=== PATIENT | female | born 1985 | race Hispanic/Latino ===

== ENCOUNTER 2019-12-26 14:32 | Emergency (ER) | payer OTHER, SELFPAY ==
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
[2019-12-26] MEDS ORDERED: HYDROCODONE/APAP 7.5/325 MG TAB ONE (15:49)
[2019-12-26] MEDS ORDERED: LIDOCAINE 1% MPF 5 ML VIAL ONE (15:49)
[2019-12-26] MEDS ORDERED: TETANUS & DIPHTHERIA TOX,ADULT 0.5 ML VIAL ONE (15:50)
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
[2019-12-26 16:31] VITALS: BP 150/92; TEMP 98.9; O2SAT 99
== END 2019-12-26 16:25 | disposition home or self-care (01) ==
LOC: ER 14:32
PROC: 0JQ10ZZ Repair Face Subcutaneous Tissue and Fascia, Open Approach (ICD-10-PCS; principal; 2019-12-26)
DX: S01.81XA Laceration without foreign body of other part of head, initial encounter (principal); Y04.2XXA Assault by strike against or bumped into by another person, initial encounter; Y92.009 Unspecified place in unspecified non-institutional (private) residence as the place of occurrence of the external cause; Y93.9 Activity, unspecified; Z23 Encounter for immunization; F17.210 Nicotine dependence, cigarettes, uncomplicated
CPT/HCPCS: 70450; 90471; 90714; 99284